=== PATIENT | female | born 1940 | race Caucasian/White ===

== ENCOUNTER 2018-02-01 00:53 | Observation (INO) | payer MEDICARE, OTHER ==
[2018-02-01] MEDS ORDERED: ONDANSETRON 4 MG/2 ML VIAL IVP STA (01:45)
[2018-02-01 01:54] LABS: Anisocytosis Marked; HCT 35.7 % (34.0-46.0); HGB 10.9 gm/dL (11.4-16.0); Hypochromasia Marked; MCH 35.3 pg (25.0-35.0); MCHC 30.4 g/dL (31.0-37.0); Macrocytosis Marked; Mean Platelet Volume 8.8; Platelet Count 272 k/uL (150-450); RBC 3.08 m/uL (3.80-5.40)
--- NOTE | 2018-02-01 01:54 | ED ---
Nausea/Vomiting/Diarrhea HPI - General Chief complaint: Nausea/Vomiting/Diarrhea Stated complaint: abd pain,NV Time Seen by Provider: 02/01/18 01:23 Source: patient, family, EMS Mode of arrival: EMS Limitations: no limitations - History of Present Illness Initial comments: This patient is 78-year-old woman transferred here from [facility] facility to be evaluated for nausea and vomiting. The patient was checked by the staff at the alf and then appeared to be somewhat sweaty and shaky, and the alf staff was concerned that she may have had a possible seizure. No report of any trauma. Patient not able to describe this event. MD complaint: nausea, vomiting, other -: hour(s) Description of Vomiting: food contents Associated Abdominal Pain: No Consistency: now resolved Improves with: none Worsens with: none - Related Data Home Medications Medication Instructions Recorded Confirmed Levothyroxine Sodium [Synthroid] 88 mcg PO DAILY@0600 01/27/14 02/01/18 Multivitamins, Thera [Multivitamin 1 tab PO DAILY@0900 01/27/14 02/01/18 (formulary)] Omeprazole [PriLOSEC] 20 mg PO DAILY@0600 01/27/14 02/01/18 carBAMazepine [TEGretol] 400 mg PO Q8H 01/27/14 02/01/18 guaiFENesin SYRUP 100MG/5ML 200 mg PO Q4H PRN 01/27/14 02/01/18 [Robitussin] Calcium Carb-Vit D 500Mg-200Un 1 tab PO BID 05/17/14 02/01/18 [Oscal 500+D] Divalproex [Depakote] 500 mg PO TID 08/20/15 02/01/18 Leucovorin Calcium 15 mg PO BID 08/20/15 02/01/18 Hydrocortisone Cream 1 applic TOPICAL BID PRN 08/27/15 02/01/18 [Hydrocortisone 1% Cream] Ipratropium-Albuterol Nebulize 3 ml INHALATION RT-Q4H PRN 08/27/15 02/01/18 [Duoneb 0.5 mg-3 mg/3 ml Soln] Cholecalciferol (Vitamin D3) 2,000 unit PO DAILY@0900 02/01/18 02/01/18 [Vitamin D3] Donepezil [Aricept] 5 mg PO HS 02/01/18 02/01/18 Lactulose [Constulose] 20 gm PO BID PRN 02/01/18 02/01/18 Melatonin 2mg 2 mg PO HS 02/01/18 02/01/18 Perampanel [Fycompa] 6 mg PO HS@2100 02/01/18 02/01/18 Previous Rx's Medication Instructions Recorded Isosorbide Mononitrate ER [Imdur] 30 mg PO DAILY #1 tab 02/17/14 levETIRAcetam [Keppra] 1,000 mg PO BID #0 tab 08/21/15 HYDROcodone/APAP 5-325MG [Gray 1 tab PO Q8H PRN #3 tab 02/01/18 5-325] Metoprolol Tartrate [Lopressor] 50 mg PO BID #1 tab 02/01/18 Allergies Allergy/AdvReac Type Severity Reaction Status Date / Time neomycin Allergy Unknown Verified 02/01/18 08:01 Review of Systems ROS Statement: Those systems with pertinent positive or pertinent negative responses have been documented in the HPI. ROS Other: All systems not noted in ROS Statement are negative. Constitutional: Denies: fever, chills Respiratory: Denies: cough, dyspnea Cardiovascular: Denies: chest pain Gastrointestinal: Reports: nausea, vomiting. Denies: abdominal pain, diarrhea, hematemesis Musculoskeletal: Denies: back pain Neurological: Denies: headache, weakness, numbness Past Medical History Past Medical History: Chest Pain / Angina, COPD, Dementia, Fibromyalgia, GERD/ Reflux, Hypertension, Memory Impairment, Seizure Disorder, Skin Disorder, Thyroid Disorder Additional Past Medical History / Comment(s): anemia, lumbago, disease of blood and blood-forming organs, unspecified. Heart disease, upspecified. History of Any Multi-Drug Resistant Organisms: None Reported Past Surgical History: Orthopedic Surgery Additional Past Surgical History / Comment(s): RECENT BILATERAL CATARACT REMOVAL 1 MONTH AGO.bilateral knee replacements Past Anesthesia/Blood Transfusion Reactions: No Reported Reaction Additional Past Anesthesia/Blood Transfusion Reaction / Comment(s): NEVER RECIEVED BLOOD. Past Psychological History: Anxiety, Depression Smoking Status: Unknown if ever smoked Past Alcohol Use History: None Reported Past Drug Use History: None Reported - Past Family History Father Family Medical History: CVA/TIA Additional Family Medical History / Comment(s): FATHER OF CVA AT AGE 80. Mother Family Medical History: Coronary Artery Disease (CAD), Myocardial Infarction ([place] ) Additional Family Medical History / Comment(s): MOTHER AT AGE 88 UNSURE OF CAUSE. General Exam Limitations: no limitations General appearance: alert, in no apparent distress Head exam: Present: atraumatic, normocephalic Eye exam: Present: normal appearance, PERRL. Absent: scleral icterus, conjunctival injection Respiratory exam: Present: normal lung sounds bilaterally. Absent: respiratory distress, wheezes, rales, rhonchi Cardiovascular Exam: Present: regular rate, normal rhythm, normal heart sounds. Absent: systolic murmur, diastolic murmur, rubs, gallop GI/Abdominal exam: Present: soft. Absent: tenderness, guarding, rebound Back exam: Present: normal inspection Neurological exam: Present: alert, CN II-XII intact. Absent: motor sensory deficit Skin exam: Present: warm, dry, intact. Absent: rash Course Vital Signs 02/01/18 02/01/18 02/01/18 01:01 01:30 02:00 Temperature 96.8 F L Pulse Rate 73 68 Respiratory 20 16 Rate Blood Pressure 201/80 201/80 193/81 O2 Sat by Pulse 92 L 92 L 96 Oximetry 02/01/18 02/01/18 02/01/18 02:30 03:00 03:30 Temperature Pulse Rate Respiratory Rate Blood Pressure 193/81 177/74 171/62 O2 Sat by Pulse 98 Oximetry 02/01/18 02/01/18 02/01/18 04:00 04:30 06:00 Temperature Pulse Rate 60 78 75 Respiratory 14 16 Rate Blood Pressure 185/82 167/72 179/82 O2 Sat by Pulse 98 97 Oximetry Medical Decision Making - Medical Decision Making Patient 78-year-old woman sent from alf for episodes of nausea and vomiting, as well as concern of possible seizure. She did have additional vomiting here and will be admitted to control the symptoms. - Lab Data Result diagrams: 02/01/18 01:13 02/01/18 01:13 Lab Results 02/01/18 02/01/18 02/01/18 Range/Units 01:13 01:13 01:13 WBC 7.3 (3.8-10.6) k/uL RBC 3.08 L (3.80-5.40) m/uL Hgb 10.9 L (11.4-16.0) gm/dL Hct 35.7 (34.0-46.0) % MCV 116.0 H (80.0-100.0) fL MCH 35.3 H (25.0-35.0) pg MCHC 30.4 L (31.0-37.0) g/dL RDW 28.0 H (11.5-15.5) % Plt Count 272 (150-450) k/uL Neutrophils % (Manual) 36 % Lymphocytes % (Manual) 61 % Monocytes % (Manual) 3 % Neutrophils # (Manual) 2.63 (1.3-7.7) k/uL Lymphocytes # (Manual) 4.45 (1.0-4.8) k/uL Monocytes # (Manual) 0.22 (0-1.0) k/uL Nucleated RBCs 2 H (0-0) /100 WBC Manual Slide Review Performed Hypochromasia Marked Anisocytosis Marked Macrocytosis Marked Target Cells Present PT (9.0-12.0) sec INR (<1.2) APTT (22.0-30.0) sec Sodium 141 (137-145) mmol/L Potassium 3.4 L (3.5-5.1) mmol/L Chloride 107 (98-107) mmol/L Carbon Dioxide 26 (22-30) mmol/L Anion Gap 8 mmol/L BUN 24 H (7-17) mg/dL Creatinine 0.44 L (0.52-1.04) mg/dL Est GFR (CKD-EPI)AfAm >90 (>60 ml/min/1.73 sqM) Est GFR (CKD-EPI)NonAf >90 (>60 ml/min/1.73 sqM) Glucose 169 H (74-99) mg/dL Lactic Ac Sepsis Rflx Plasma Lactic Acid Cliff 2.8 H* (0.7-2.0) mmol/L Calcium 8.5 (8.4-10.2) mg/dL Total Bilirubin 0.5 (0.2-1.3) mg/dL AST 45 H (14-36) U/L ALT 43 (9-52) U/L Alkaline Phosphatase 136 H (38-126) U/L Troponin I (0.000-0.034) ng/mL Total Protein 6.4 (6.3-8.2) g/dL Albumin 3.3 L (3.5-5.0) g/dL Urine Color Urine Appearance (Clear) Urine pH (5.0-8.0) Ur Specific Orange (1.001-1.035) Urine Protein (Negative) Urine Glucose (UA) (Negative) Urine Ketones (Negative) Urine Blood (Negative) Urine Nitrite (Negative) Urine Bilirubin (Negative) Urine Urobilinogen (<2.0) mg/dL Ur Leukocyte Esterase (Negative) 02/01/18 02/01/18 02/01/18 Range/Units 01:13 01:13 02:21 WBC (3.8-10.6) k/uL RBC (3.80-5.40) m/uL Hgb (11.4-16.0) gm/dL Hct (34.0-46.0) % MCV (80.0-100.0) fL MCH (25.0-35.0) pg MCHC (31.0-37.0) g/dL RDW (11.5-15.5) % Plt Count (150-450) k/uL Neutrophils % (Manual) % Lymphocytes % (Manual) % Monocytes % (Manual) % Neutrophils # (Manual) (1.3-7.7) k/uL Lymphocytes # (Manual) (1.0-4.8) k/uL Monocytes # (Manual) (0-1.0) k/uL Nucleated RBCs (0-0) /100 WBC Manual Slide Review Hypochromasia Anisocytosis Macrocytosis Target Cells PT 11.5 (9.0-12.0) sec INR 1.2 H (<1.2) APTT 21.9 L (22.0-30.0) sec Sodium (137-145) mmol/L Potassium (3.5-5.1) mmol/L Chloride (98-107) mmol/L Carbon Dioxide (22-30) mmol/L Anion Gap mmol/L BUN (7-17) mg/dL Creatinine (0.52-1.04) mg/dL Est GFR (CKD-EPI)AfAm (>60 ml/min/1.73 sqM) Est GFR (CKD-EPI)NonAf (>60 ml/min/1.73 sqM) Glucose (74-99) mg/dL Lactic Ac Sepsis Rflx Y Plasma Lactic Acid Cliff (0.7-2.0) mmol/L Calcium (8.4-10.2) mg/dL Total Bilirubin (0.2-1.3) mg/dL AST (14-36) U/L ALT (9-52) U/L Alkaline Phosphatase (38-126) U/L Troponin I <0.012 (0.000-0.034) ng/mL Total Protein (6.3-8.2) g/dL Albumin (3.5-5.0) g/dL Urine Color Urine Appearance (Clear) Urine pH (5.0-8.0) Ur Specific Orange (1.001-1.035) Urine Protein (Negative) Urine Glucose (UA) (Negative) Urine Ketones (Negative) Urine Blood (Negative) Urine Nitrite (Negative) Urine Bilirubin (Negative) Urine Urobilinogen (<2.0) mg/dL Ur Leukocyte Esterase (Negative) 02/01/18 Range/Units 04:20 WBC (3.8-10.6) k/uL RBC (3.80-5.40) m/uL Hgb (11.4-16.0) gm/dL Hct (34.0-46.0) % MCV (80.0-100.0) fL MCH (25.0-35.0) pg MCHC (31.0-37.0) g/dL RDW (11.5-15.5) % Plt Count (150-450) k/uL Neutrophils % (Manual) % Lymphocytes % (Manual) % Monocytes % (Manual) % Neutrophils # (Manual) (1.3-7.7) k/uL Lymphocytes # (Manual) (1.0-4.8) k/uL Monocytes # (Manual) (0-1.0) k/uL Nucleated RBCs (0-0) /100 WBC Manual Slide Review Hypochromasia Anisocytosis Macrocytosis Target Cells PT (9.0-12.0) sec INR (<1.2) APTT (22.0-30.0) sec Sodium (137-145) mmol/L Potassium (3.5-5.1) mmol/L Chloride (98-107) mmol/L Carbon Dioxide (22-30) mmol/L Anion Gap mmol/L BUN (7-17) mg/dL Creatinine (0.52-1.04) mg/dL Est GFR (CKD-EPI)AfAm (>60 ml/min/1.73 sqM) Est GFR (CKD-EPI)NonAf (>60 ml/min/1.73 sqM) Glucose (74-99) mg/dL Lactic Ac Sepsis Rflx Plasma Lactic Acid Cliff (0.7-2.0) mmol/L Calcium (8.4-10.2) mg/dL Total Bilirubin (0.2-1.3) mg/dL AST (14-36) U/L ALT (9-52) U/L Alkaline Phosphatase (38-126) U/L Troponin I (0.000-0.034) ng/mL Total Protein (6.3-8.2) g/dL Albumin (3.5-5.0) g/dL Urine Color Yellow Urine Appearance Clear (Clear) Urine pH 5.5 (5.0-8.0) Ur Specific Orange 1.019 (1.001-1.035) Urine Protein Negative (Negative) Urine Glucose (UA) Negative (Negative) Urine Ketones Trace H (Negative) Urine Blood Negative (Negative) Urine Nitrite Negative (Negative) Urine Bilirubin Negative (Negative) Urine Urobilinogen <2.0 (<2.0) mg/dL Ur Leukocyte Esterase Negative (Negative) - EKG Data EKG shows normal: sinus rhythm, axis (Left axis deviation), intervals (MT interval 152 ms, normal. QTC 467 ms, normal. QRS duration slightly prolonged at 122 ms.), QRS complexes (Widened), ST-T waves (Normal) Rate: normal (Rate 67 bpm) Interpretation: LVH Disposition Clinical Impression: Nausea and vomiting in adult Disposition: ADMITTED IP TO THIS HOSP Condition: Fair
[2018-02-01 02:08] LABS: ALT 43 U/L (9-52); AST 45 U/L (14-36); Albumin 3.3 g/dL (3.5-5.0); Alkaline Phosphatase 136 U/L (38-126); Anion Gap 8 mmol/L; Blood Urea Nitrogen 24 mg/dL (7-17); Calcium 8.5 mg/dL (8.4-10.2); Carbon Dioxide 26 mmol/L (22-30); Chloride 107 mmol/L (98-107); Glucose 169 mg/dL (74-99); Potassium 3.4 mmol/L (3.5-5.1); Sodium 141 mmol/L (137-145); Total Bilirubin 0.5 mg/dL (0.2-1.3); Total Protein 6.4 g/dL (6.3-8.2)
[2018-02-01 02:09] LABS: INR 1.2 (<1.2); Partial Thromboplastin Time 21.9 sec (22.0-30.0); Prothrombin Time 11.5 sec (9.0-12.0)
--- NOTE | 2018-02-01 02:29 | XR ---
EXAMINATION TYPE: XR chest 1V portable DATE OF EXAM: 02/01/2018 COMPARISON: 08/20/2015 HISTORY: Nausea and vomiting TECHNIQUE: Single frontal view of the chest is obtained. FINDINGS: There is poor aspiration. There is some patchy atelectasis at the lung bases. There is no heart failure. Heart is probably enlarged. IMPRESSION: Atelectasis at the lung bases is the same or worse than last exam. No heart failure seen . Poor inspiration.
[2018-02-01 02:52] LABS: Lymphocytes # (M) 4.45 k/uL (1.0-4.8); Monocytes # (M) 0.22 k/uL (0-1.0); Neutrophils # (M) 2.63 k/uL (1.3-7.7); Neutrophils % (M) 36 %; Nucleated Red Blood Cells 2 /100 WBC (0-0); Target Cells Present; Total Cells Counted 200; WBC 7.3 k/uL (3.8-10.6)
[2018-02-01] MEDS ORDERED: SODIUM CHLORIDE 0.9% 2,500 ML IV ONE (02:59)
[2018-02-01 04:43] LABS: Appearance,Urine Clear (Clear); Bilirubin,Urine Negative (Negative); Blood,Urine Negative (Negative); Color,Urine Yellow; Glucose,Urine (UA) Negative (Negative); Ketones,Urine Trace (Negative); Leukocyte Esterase,Urine Negative (Negative); Nitrite,Urine Negative (Negative); PH, Urine 5.5 (5.0-8.0); Protein,Urine Negative (Negative); Specific Gravity,Urine 1.019 (1.001-1.035); Urobilinogen,Urine <2.0 mg/dL (<2.0)
[2018-02-01] MEDS ORDERED: NALOXONE 0.4 MG/ML 1 ML VIAL IV PRN (04:54)
[2018-02-01] MEDS ORDERED: ONDANSETRON 4 MG/2 ML VIAL IVP PRN (04:54)
[2018-02-01] MEDS ORDERED: Acetaminophen-Codeine 300-30mg TAB PO PRN (04:56)
[2018-02-01] MEDS ORDERED: IPRATROPIUM-ALBUTEROL 3 ML NEB INHALATION PRN (04:56)
[2018-02-01] MEDS ORDERED: HYDROCORTISONE 1% CREAM 30 GM TUBE TOPICAL PRN (04:56)
[2018-02-01] MEDS ORDERED: SODIUM CHLORIDE 0.9% 1,000 ML IV SCH (05:00)
[2018-02-01] MEDS ORDERED: PANTOPRAZOLE 40 MG TABLET PO SCH (07:30)
[2018-02-01] MEDS ORDERED: LEVOTHYROXINE 88 MCG TAB PO SCH (07:30)
[2018-02-01 07:49] VITALS: BP 176/90; PULSE 80; RESP 18; TEMP 97.1
[2018-02-01] MEDS ORDERED: METOPROLOL TARTRATE 25 MG TAB PO SCH (09:00)
[2018-02-01] MEDS ORDERED: FLUDROCORTISONE 0.1 MG TAB PO SCH (09:00)
[2018-02-01] MEDS ORDERED: carBAMazepine 200 MG TAB PO SCH (09:00)
[2018-02-01] MEDS ORDERED: ISOSORBIDE MONONITRATE ER 30 MG TAB.ER.24H PO SCH (09:00)
[2018-02-01] MEDS ORDERED: DIVALPROEX 500 MG TABLET.DR PO SCH (09:00)
[2018-02-01] MEDS ORDERED: levETIRAcetam 500 MG TAB PO SCH (09:00)
[2018-02-01] MEDS ORDERED: LACTULOSE 20 GM/30 ML CUP PO SCH (09:00)
[2018-02-01] MEDS ORDERED: HYDROcodone/APAP 5-325MG 1 EACH TAB PO PRN (11:35)
[2018-02-01] MEDS ORDERED: LEUCOVORIN 5 MG TAB PO SCH (12:00)
[2018-02-01] MEDS ORDERED: METOPROLOL TARTRATE 25 MG TAB PO ONE (15:15)
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
--- NOTE | 2018-02-01 16:00 | DS ---
DISCHARGE SUMMARY ADDENDUM TO DISCHARGE SUMMARY: DATE OF ADMISSION: 02/01/2018 DATE OF DISCHARGE: 02/01/2018. DISCHARGE MEDICATIONS: 1. Synthroid 88 mcg a day. 2. Multivitamin 1 tablet p.o. daily. 3. Prilosec 20 mg p.o. daily. 4. Tegretol 400 mg p.o. q.8 hours. 5. Robitussin 200 mg q.4 hours p.r.n. 6. Imdur ER 30 mg a day. 7. Os-Juan Jose 500 with D one tablet p.o. b.i.d. 8. Depakote 500 mg p.o. t.i.d.. 9. Leucovorin 15 mg p.o. b.i.d. 10.Keppra 1000 mg p.o. b.i.d. 11.Hydrocortisone 1% cream topically b.i.d. p.r.n. 12.DuoNeb q.4 p.r.n. 13.Vitamin D3 2000 units p.o. daily. 14.Aricept 5 mg at bedtime. 15.[place] 5 one tablet q.8 p.r.n. 16.Lactulose 20 grams p.o. b.i.d. p.r.n. 17.Melatonin 2 mg p.o. at bedtime. 18.Lopressor 50 mg p.o. b.i.d.; new dose. 19.Fycompa 6 mg p.o. at bedtime. DISCONTINUED: Claritin and Florinef. DISPOSITION: [facility]. Follow up with Dr. Ramos at [facility]. MMRAJESH / [place]: [id number] /
[2018-02-01] MEDS ORDERED: DONEPEZIL 5 MG TAB PO SCH (21:00)
[2018-02-01] MEDS ORDERED: MELATONIN 1 MG TAB PO SCH (21:00)
[2018-02-01] MEDS ORDERED: CALCIUM CARB-VIT D 500MG-200UN 1 EACH TAB PO SCH (21:00)
[2018-02-01] MEDS ORDERED: PERAMPANEL 6 MG PO SCH (21:00)
[2018-02-01] MEDS ORDERED: METOPROLOL TARTRATE 50 MG TAB PO SCH (21:00)
[2018-02-02] MEDS ORDERED: MULTIVITAMINS, THERA 1 EACH TAB PO SCH (09:00)
== END 2018-02-01 17:30 ==
LOC: EC 00:53 → EEVIPCON 00:53 → 1SOBS 04:54
PROVIDERS: ADMIT Hospitalist; ATTEND Hospitalist
DX: E86.0 Dehydration (principal); R11.2 Nausea with vomiting, unspecified; R10.9 Unspecified abdominal pain; R19.7 Diarrhea, unspecified; I10 Essential (primary) hypertension; Z68.30 Body mass index [BMI] 30.0-30.9, adult; E66.9 Obesity, unspecified; I25.10 Atherosclerotic heart disease of native coronary artery without angina pectoris; J44.9 Chronic obstructive pulmonary disease, unspecified; F02.80 Dementia in other diseases classified elsewhere, unspecified severity, without behavioral disturbance, psychotic disturbance, mood disturbance, and anxiety; G30.1 Alzheimer's disease with late onset; M79.7 Fibromyalgia; K21.9 Gastro-esophageal reflux disease without esophagitis; M19.91 Primary osteoarthritis, unspecified site; G40.909 Epilepsy, unspecified, not intractable, without status epilepticus; E03.9 Hypothyroidism, unspecified; M79.602 Pain in left arm; M54.5 Low back pain; Z99.3 Dependence on wheelchair; R53.81 Other malaise; D64.9 Anemia, unspecified; I73.9 Peripheral vascular disease, unspecified; R32 Unspecified urinary incontinence; F51.04 Psychophysiologic insomnia; Z86.73 Personal history of transient ischemic attack (TIA), and cerebral infarction without residual deficits; F41.9 Anxiety disorder, unspecified; F32.9 Major depressive disorder, single episode, unspecified; Z79.899 Other long term (current) drug therapy; Z79.890 Hormone replacement therapy; Z88.1 Allergy status to other antibiotic agents; Z87.828 Personal history of other (healed) physical injury and trauma
CPT/HCPCS: 99285; 96365 ×2; 96375 ×2; 96361 ×3; 36415; 93005; 80053; 83605; 84484; 85025; 85610; 85730; 81003; 87040; 87086; 87077; 87186; 71045; G0378; J2405; J0696

== ENCOUNTER 2018-04-05 09:30 | Emergency (ER) | payer MEDICARE, OTHER ==
[2018-04-05 09:40] VITALS: PULSE 61
--- NOTE | 2018-04-05 10:01 | ED ---
General Adult HPI - General Chief complaint: Recheck/Abnormal Lab/Rx Stated complaint: recheck Time Seen by Provider: 04/05/18 09:45 Source: patient, RN notes reviewed, old records reviewed Mode of arrival: EMS Limitations: no limitations - History of Present Illness Initial comments: This is a 70-year-old male female the ER for evaluation. Patient presents today for evaluation regarding to recheck. Patient herself denies any current complaints. Patient states she has no problems has no complaints does not want to be here in the emergency room at this time. -: unknown (Unknown complaint of dry heaving) Quality: other (None) Consistency: now resolved Improves with: none Worsens with: none Associated Symptoms: denies other symptoms Treatments Prior to Arrival: none - Related Data Home Medications Medication Instructions Recorded Confirmed Levothyroxine Sodium [Synthroid] 88 mcg PO DAILY@0600 01/27/14 04/05/18 Multivitamins, Thera [Multivitamin 1 tab PO DAILY@0900 01/27/14 04/05/18 (formulary)] Omeprazole [PriLOSEC] 20 mg PO DAILY@0600 01/27/14 04/05/18 carBAMazepine [TEGretol] 400 mg PO Q8H 01/27/14 04/05/18 guaiFENesin SYRUP 100MG/5ML 200 mg PO Q4H PRN 01/27/14 04/05/18 [Robitussin] Calcium Carb-Vit D 500Mg-200Un 1 tab PO BID 05/17/14 04/05/18 [Oscal 500+D] Divalproex [Depakote] 500 mg PO TID 08/20/15 04/05/18 Ipratropium-Albuterol Nebulize 3 ml INHALATION RT-Q4H PRN 08/27/15 04/05/18 [Duoneb 0.5 mg-3 mg/3 ml Soln] Cholecalciferol (Vitamin D3) 2,000 unit PO DAILY@0900 02/01/18 04/05/18 [Vitamin D3] Donepezil [Aricept] 5 mg PO HS 02/01/18 04/05/18 Lactulose [Constulose] 20 gm PO BID PRN 02/01/18 04/05/18 Melatonin 2mg 2 mg PO HS 02/01/18 04/05/18 Perampanel [Fycompa] 6 mg PO HS@2100 02/01/18 04/05/18 Clotrimazole/Betamethasone Dip 1 applic TOPICAL Q12H 04/05/18 04/05/18 [Lotrisone Cream] Leucovorin Calcium 5 mg PO BID 04/05/18 04/05/18 Leucovorin Calcium 10 mg PO BID 04/05/18 04/05/18 Sertraline HCl [Zoloft] 25 mg PO DAILY 04/05/18 04/05/18 Previous Rx's Medication Instructions Recorded Isosorbide Mononitrate ER [Imdur] 30 mg PO DAILY #1 tab 02/17/14 levETIRAcetam [Keppra] 1,000 mg PO BID #0 tab 08/21/15 HYDROcodone/APAP 5-325MG [[place] 1 tab PO Q8H PRN #3 tab 02/01/18 5-325] Metoprolol Tartrate [Lopressor] 50 mg PO BID #1 tab 02/01/18 Allergies Allergy/AdvReac Type Severity Reaction Status Date / Time neomycin Allergy Unknown Verified 04/05/18 10:00 Review of Systems ROS Statement: Those systems with pertinent positive or pertinent negative responses have been documented in the HPI. ROS Other: All systems not noted in ROS Statement are negative. Past Medical History Past Medical History: Chest Pain / Angina, COPD, Dementia, Fibromyalgia, GERD/ Reflux, Hypertension, Memory Impairment, Seizure Disorder, Skin Disorder, Thyroid Disorder Additional Past Medical History / Comment(s): anemia, lumbago, disease of blood and blood-forming organs, unspecified. Heart disease, upspecified. History of Any Multi-Drug Resistant Organisms: None Reported Past Surgical History: Orthopedic Surgery Additional Past Surgical History / Comment(s): RECENT BILATERAL CATARACT REMOVAL 1 MONTH AGO.bilateral knee replacements Past Anesthesia/Blood Transfusion Reactions: No Reported Reaction Additional Past Anesthesia/Blood Transfusion Reaction / Comment(s): NEVER RECIEVED BLOOD. Past Psychological History: Anxiety, Depression Smoking Status: Unknown if ever smoked Past Alcohol Use History: None Reported Past Drug Use History: None Reported - Past Family History Father Family Medical History: CVA/TIA Additional Family Medical History / Comment(s): FATHER OF CVA AT AGE 80. Mother Family Medical History: Coronary Artery Disease (CAD), Myocardial Infarction ([place] ) Additional Family Medical History / Comment(s): MOTHER AT AGE 88 UNSURE OF CAUSE. General Exam Limitations: no limitations General appearance: alert, in no apparent distress Head exam: Present: atraumatic, normocephalic, normal inspection Eye exam: Present: normal appearance, PERRL, EOMI. Absent: scleral icterus, conjunctival injection, periorbital swelling ENT exam: Present: normal exam, mucous membranes moist Neck exam: Present: normal inspection. Absent: tenderness, meningismus, lymphadenopathy Respiratory exam: Present: normal lung sounds bilaterally. Absent: respiratory distress, wheezes, rales, rhonchi, stridor Cardiovascular Exam: Present: regular rate, normal rhythm, normal heart sounds. Absent: systolic murmur, diastolic murmur, rubs, gallop, clicks GI/Abdominal exam: Present: soft, normal bowel sounds. Absent: distended, tenderness, guarding, rebound, rigid Extremities exam: Present: normal inspection, full ROM, normal capillary refill. Absent: tenderness, pedal edema, joint swelling, calf tenderness Back exam: Present: normal inspection Neurological exam: Present: alert, oriented X3, CN II-XII intact Psychiatric exam: Present: normal affect, normal mood Skin exam: Present: warm, dry, intact, normal color. Absent: rash Course Vital Signs 04/05/18 09:32 Temperature 97.5 F L Pulse Rate 61 Respiratory 18 Rate Blood Pressure 151/62 O2 Sat by Pulse 99 Oximetry - Reevaluation(s) Reevaluation #1: 04/05/18 10:15 Medical record and transfer paperwork are reviewed Reevaluation #2: 04/05/18 10:53 Spoke with [facility], they state patient does have these episodes of dry heaving, they did send her to ER for evaluation states that she had similar episodes about a year ago which did eventually get better, resolved. Medical Decision Making - Medical Decision Making 78 female the ER for evaluation presents today for evaluation regards to dry heaving, recurrent evaluation for dry heaving, patient is without any symptoms currently. Patient will be discharged back to [facility] Disposition Clinical Impression: Well adult exam Disposition: HOME SELF-CARE Condition: Good Instructions: Normal Exam (ED) Is patient prescribed a controlled substance at d/c from ED?: No Referrals: Maulik Ramos MD [Primary Care Provider] - 1-2 days
[2018-04-05 11:27] VITALS: BP 158/64; RESP 16; TEMP 97.8
== END 2018-04-05 12:25 | disposition home or self-care (01) ==
LOC: EC 09:30
DX: Z00.00 Encounter for general adult medical examination without abnormal findings (principal); R11.10 Vomiting, unspecified; J44.9 Chronic obstructive pulmonary disease, unspecified; F03.90 Unspecified dementia, unspecified severity, without behavioral disturbance, psychotic disturbance, mood disturbance, and anxiety; M79.7 Fibromyalgia; K21.9 Gastro-esophageal reflux disease without esophagitis; I10 Essential (primary) hypertension; G40.909 Epilepsy, unspecified, not intractable, without status epilepticus; E07.9 Disorder of thyroid, unspecified; D64.9 Anemia, unspecified; F32.9 Major depressive disorder, single episode, unspecified; F41.9 Anxiety disorder, unspecified; Z79.899 Other long term (current) drug therapy; Z88.1 Allergy status to other antibiotic agents; Z96.653 Presence of artificial knee joint, bilateral
CPT/HCPCS: 99284

== ENCOUNTER 2018-09-24 20:12 | Emergency (ER) | payer MEDICARE, OTHER ==
[2018-09-24 20:33] VITALS: RESP 18; TEMP 98
[2018-09-24] MEDS ORDERED: DIPH,PERTUS(ACELL)TETVAC-LF 0.5 ML VIAL IM ONE (21:37)
[2018-09-24] MEDS ORDERED: IBUPROFEN 600 MG TAB PO STA (21:37)
--- NOTE | 2018-09-24 21:40 | ED ---
General Adult HPI <AshleeBoogie P - Last Filed: 09/25/18 00:12> - General Source: EMS Mode of arrival: EMS Limitations: altered mental status - History of Present Illness -: hour(s) Location: left, lower extremity Radiation: non-radiation Severity scale (1-10): 0 Improves with: none Worsens with: none Associated Symptoms: denies other symptoms Treatments Prior to Arrival: none <Anastacio Blunt - Last Filed: 09/26/18 12:29> - General Chief complaint: Wound/Laceration Stated complaint: weakness Time Seen by Provider: 09/24/18 20:58 - History of Present Illness Initial comments: This patient is 78-year-old woman who states "I stubbed my toe." She states she had been attempting walk and then struck to on the ground. She then noted that it was bleeding afterward. The patient was denying significant pain initially. She indicates the fourth and fifth toes of the left foot. Following the exam she did have a little bit of mild aching pain. She stated that it was worse with palpation. No relieving factors. Patient denies any other injuries. She was not sure when her last tetanus shot administered. (Anastacio Blunt) - Related Data Home Medications Medication Instructions Recorded Confirmed Levothyroxine Sodium [Synthroid] 88 mcg PO DAILY@0600 01/27/14 09/24/18 Multivitamins, Thera [Multivitamin 1 tab PO DAILY@0900 01/27/14 09/24/18 (formulary)] carBAMazepine [TEGretol] 400 mg PO Q8H 01/27/14 09/24/18 guaiFENesin SYRUP 100MG/5ML 200 mg PO Q4H PRN 01/27/14 09/24/18 [Robitussin] Calcium Carb-Vit D 500Mg-200Un 1 tab PO BID 05/17/14 09/24/18 [Oscal 500+D] Divalproex [Depakote] 500 mg PO TID 08/20/15 09/24/18 Ipratropium-Albuterol Nebulize 3 ml INHALATION RT-Q4H PRN 08/27/15 09/24/18 [Duoneb 0.5 mg-3 mg/3 ml Soln] Cholecalciferol (Vitamin D3) 2,000 unit PO DAILY@0900 02/01/18 09/24/18 [Vitamin D3] Donepezil [Aricept] 5 mg PO HS 02/01/18 09/24/18 Lactulose [Constulose] 20 gm PO BID PRN 02/01/18 09/24/18 Perampanel [Fycompa] 6 mg PO HS@2100 02/01/18 09/24/18 Leucovorin Calcium 5 mg PO BID 04/05/18 09/24/18 Leucovorin Calcium 10 mg PO BID 04/05/18 09/24/18 Acetaminophen [Tylenol] 650 mg PO Q4H PRN 09/24/18 09/24/18 Famotidine [Pepcid] 20 mg PO HS 09/24/18 09/24/18 Melatonin 2 mg PO HS 09/24/18 09/24/18 Sertraline [Zoloft] 50 mg PO DAILY 09/24/18 09/24/18 Previous Rx's Medication Instructions Recorded levETIRAcetam [Keppra] 1,000 mg PO BID #0 tab 08/21/15 Metoprolol Tartrate [Lopressor] 50 mg PO BID #1 tab 02/01/18 Cephalexin [Keflex] 500 mg PO Q6HR #28 cap 09/25/18 Allergies Allergy/AdvReac Type Severity Reaction Status Date / Time neomycin Allergy Unknown Verified 09/24/18 20:59 Review of Systems ROS Other: All systems not noted in ROS Statement are negative. <Boogie Rosado - Last Filed: 09/25/18 00:12> ROS Other: All systems not noted in ROS Statement are negative. Cardiovascular: Denies: chest pain Gastrointestinal: Denies: abdominal pain Musculoskeletal: Denies: back pain Neurological: Denies: headache, weakness, numbness <Anastacio Blunt - Last Filed: 09/26/18 12:29> ROS Statement: Those systems with pertinent positive or pertinent negative responses have been documented in the HPI. Past Medical History Past Medical History: Chest Pain / Angina, COPD, Dementia, Fibromyalgia, GERD/Reflux, Hypertension, Memory Impairment, Seizure Disorder, Skin Disorder, Thyroid Disorder Additional Past Medical History / Comment(s): anemia, lumbago, disease of blood and blood-forming organs, unspecified. Heart disease, upspecified. History of Any Multi-Drug Resistant Organisms: None Reported Past Surgical History: Orthopedic Surgery Additional Past Surgical History / Comment(s): RECENT BILATERAL CATARACT REMOVAL 1 MONTH AGO.bilateral knee replacements Past Anesthesia/Blood Transfusion Reactions: No Reported Reaction Additional Past Anesthesia/Blood Transfusion Reaction / Comment(s): NEVER RECIEVED BLOOD. Past Psychological History: Anxiety, Depression Smoking Status: Unknown if ever smoked Past Alcohol Use History: None Reported Past Drug Use History: None Reported - Past Family History Father Family Medical History: CVA/TIA Additional Family Medical History / Comment(s): FATHER OF CVA AT AGE 80. Mother Family Medical History: Coronary Artery Disease (CAD), Myocardial Infarction ([place]) Additional Family Medical History / Comment(s): MOTHER AT AGE 88 UNSURE OF CAUSE. <Anastacio Blunt - Last Filed: 09/26/18 12:29> General Exam Limitations: altered mental status General appearance: alert, in no apparent distress Head exam: Present: atraumatic, normocephalic Cardiovascular Exam: Present: other (Dorsalis pedis pulse is normal on the left foot and there is normal capillary refill.) Neurological exam: Absent: motor sensory deficit (Throughout the left foot, no sensory or motor deficit.) Skin exam: Present: warm, dry, normal color, other (Laceration to the interdigital space toes 4-5. 2 cm in length.) <Anastacio Blunt - Last Filed: 09/26/18 12:29> Course Vital Signs 09/24/18 09/25/18 20:25 02:00 Temperature 98 F Pulse Rate 65 88 Respiratory 18 18 Rate Blood Pressure 126/74 133/92 O2 Sat by Pulse 98 95 Oximetry Procedures - Laceration Laceration #1 Consent Obtained: verbal consent Indication: laceration Site: foot (involves plantar base of left 4th and 5th digits) Size (cm): 3 Description: linear Depth: simple, single layer Anesthetic Used: lidocaine 1% Anesthesia Technique: local infiltration Amount (mls): 5 Pre-repair: wound explored, irrigated extensively (with 2 L sterile water and saline pressure irrgiation) Type of Sutures: nylon Size of Sutures: 5-0 Number of Sutures: 7 Technique: simple, interrupted Patient Tolerated Procedure: well, no complications <Boogie Rosado - Last Filed: 09/25/18 00:12> Medical Decision Making <Anastacio Blunt - Last Filed: 09/26/18 12:29> - Medical Decision Making Patient 78-year-old woman with foot injury after she struck her foot against a wall. She does appear to have nondisplaced mid phalanx fracture to #4. Clinically the patient does not have first toe fracture as suspected by radiology report. The patient had through irrigation and wound closure. Patient will be given antibiotic and follow closely to ensure no infection developing. (Anastacio Blunt) Disposition <Boogie Rosado - Last Filed: 09/25/18 00:12> Is patient prescribed a controlled substance at d/c from ED?: No <Anastacio Blunt - Last Filed: 09/26/18 12:29> Clinical Impression: Laceration, Toe fracture, left Disposition: HOME SELF-CARE Condition: Fair Instructions (If sedation given, give patient instructions): Laceration (ED), Toe Fracture (ED) Prescriptions: Cephalexin [Keflex] 500 mg PO Q6HR #28 cap Referrals: Maulik Ramos MD [Primary Care Provider] - 1-2 days Oliver Iglesias MD [Medical Doctor] - 1-2 days
--- NOTE | 2018-09-24 21:54 | XR ---
EXAMINATION TYPE: XR foot complete LT DATE OF EXAM: 09/24/2018 COMPARISON: NONE HISTORY: Lacerations. Trauma. TECHNIQUE: 3 views FINDINGS: There is narrowing and spurring at the first MP joint. There is osteopenia. There is vascul ar calcification. Metatarsals appear intact. There is irregular cortex of the base of the proximal ph alanx of the big toe. This could be a nondisplaced fracture. IMPRESSION: Possible nondisplaced fracture of the proximal phalanx big toe left foot. 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
[2018-09-24] MEDS ORDERED: LIDOCAINE 1% INJ 10MG/ML (20 ML MDV) SQ ONE (22:19)
[2018-09-24] MEDS ORDERED: ceFAZolin IN SWFI 2 GM/20 ML SYRINGE IVP ONE (22:19)
[2018-09-25 06:37] VITALS: BP 133/92; PULSE 88
== END 2018-09-25 01:50 | disposition home or self-care (01) ==
LOC: EC 20:12
DX: S92.525B Nondisplaced fracture of middle phalanx of left lesser toe(s), initial encounter for open fracture (principal); S91.115A Laceration without foreign body of left lesser toe(s) without damage to nail, initial encounter; J44.9 Chronic obstructive pulmonary disease, unspecified; F03.90 Unspecified dementia, unspecified severity, without behavioral disturbance, psychotic disturbance, mood disturbance, and anxiety; G40.909 Epilepsy, unspecified, not intractable, without status epilepticus; K21.9 Gastro-esophageal reflux disease without esophagitis; F32.9 Major depressive disorder, single episode, unspecified; F41.9 Anxiety disorder, unspecified; E07.9 Disorder of thyroid, unspecified; I10 Essential (primary) hypertension; Z23 Encounter for immunization; Z79.890 Hormone replacement therapy; Z79.899 Other long term (current) drug therapy; Z88.1 Allergy status to other antibiotic agents; Z96.653 Presence of artificial knee joint, bilateral; W22.8XXA Striking against or struck by other objects, initial encounter
CPT/HCPCS: 73630; 90715; 99285; 12002; 90471; 96365; J0690

== ENCOUNTER 2019-05-01 08:38 | Emergency (ER) | payer MEDICARE, OTHER ==
[2019-05-01 09:17] LABS: ALT 32 U/L (4-34); AST 64 U/L (14-36); African American GFR (CKD) >90 (>60 ml/min/1.73 sqM); Albumin 3.2 g/dL (3.5-5.0); Alkaline Phosphatase 74 U/L (38-126); Anion Gap 8 mmol/L; Blood Urea Nitrogen 18 mg/dL (7-17); Calcium 8.3 mg/dL (8.4-10.2); Carbon Dioxide 27 mmol/L (22-30); Chloride 104 mmol/L (98-107); Glucose 127 mg/dL (74-99); Magnesium 1.7 mg/dL (1.6-2.3); Non-African American GFR(CKD) 86 (>60 ml/min/1.73 sqM); Potassium 3.7 mmol/L (3.5-5.1); Sodium 139 mmol/L (137-145); Total Bilirubin 0.7 mg/dL (0.2-1.3); Total Protein 7.2 g/dL (6.3-8.2)
[2019-05-01 09:19] LABS: INR 1.2 (<1.2); Partial Thromboplastin Time 22.8 sec (22.0-30.0); Prothrombin Time 12.3 sec (9.0-12.0)
[2019-05-01 09:29] LABS: Appearance,Urine Clear (Clear); Bacteria,Urine Rare /hpf; Bilirubin,Urine Negative (Negative); Blood,Urine Negative (Negative); Color,Urine Dark Yellow; Glucose,Urine (UA) Negative (Negative); Hyaline Casts,Urine 74 /lpf (0-2); Ketones,Urine Trace (Negative); Leukocyte Esterase,Urine Negative (Negative); Mucus,Urine Occasional /hpf; Nitrite,Urine Negative (Negative); PH, Urine 5.5 (5.0-8.0); Protein,Urine 1+ (Negative); RBC,Urine 1 /hpf (0-5); Specific Gravity,Urine 1.031 (1.001-1.035); Squamous Epithelial Cell,Urine 1 /hpf (0-4); Urobilinogen,Urine <2.0 mg/dL (<2.0); WBC,Urine 2 /hpf (0-5)
[2019-05-01 09:36] LABS: Anisocytosis Marked; Basophils % (A) 1 %; Eosinophils % (A) 1 %; HCT 34.1 % (34.0-46.0); HGB 10.5 gm/dL (11.4-16.0); Hypochromasia Moderate; Lymphocytes # (A) 1.1 k/uL (1.0-4.8); Lymphocytes % (A) 35 %; MCH 36.1 pg (25.0-35.0); MCHC 30.8 g/dL (31.0-37.0); MCV 117.1 fL (80.0-100.0); Macrocytosis Marked; Mean Platelet Volume 9.8; Monocytes # (A) 0.3 k/uL (0-1.0); Monocytes % (A) 10 %; Neutrophils # (A) 1.6 k/uL (1.3-7.7); Neutrophils % (A) 50 %; Platelet Count 207 k/uL (150-450); RBC 2.91 m/uL (3.80-5.40); WBC 3.2 k/uL (3.8-10.6)
[2019-05-01 09:38] LABS: RDW 26.5 % (11.5-15.5)
[2019-05-01] MEDS ORDERED: SODIUM CHLORIDE 0.9% 1,000 ML IV STA (09:42)
--- NOTE | 2019-05-01 09:45 | ED ---
General Adult HPI - General Chief complaint: Weakness Stated complaint: lethargy/nausea Time Seen by Provider: 05/01/19 08:42 Source: patient Mode of arrival: EMS Limitations: no limitations - History of Present Illness Initial comments: Dictation was produced using Verdi[employer] dictation software. please excuse any grammatical, word or spelling errors. Chief Complaint: 79-year-old female sent in from [facility] for generalized weakness. History of Present Illness: 9-year-old female she has multiple comorbidities presents today with generalized weakness. Patient states she was feeling tired over the last 24 hours. She states she was diagnosed with fluid couple weeks ago. She states that flulike symptoms are gone. Patient states she feels weak especially worse when she tries to get up. Denies any vertiginous symptoms. She does feel nauseated but no vomiting. Denies any constitutional symptoms. Patient is a poor historian at this time. She is adamant that she is dehydrated and wants fluids. The ROS documented in this emergency department record has been reviewed and confirmed by me. Those systems with pertinent positive or negative responses have been documented in the HPI. All other systems are other negative and/or noncontributory. PHYSICAL EXAM: General Impression: Alert and oriented x3, not in acute distress HEENT: Normocephalic atraumatic, extra-ocular movements intact, pupils equal and reactive to light bilaterally, dry mucous membranes Cardiovascular: Heart regular rate and rhythm, S1&S2 audible, no murmurs, rubs or gallops Chest: Lungs clear to auscultation bilaterally, no rhonchi, no wheeze, no rales Abdomen: Bowel sounds present, abdomen soft, non-tender, non-distended, no organomegaly Musculoskeletal: Pulses present and equal in all extremities, no peripheral edema Motor: no focal deficits noted Neurological: CN II-XII grossly intact, no focal motor or sensory deficits noted Skin: Intact with no visualized rashes Psych: Normal affect and mood ED course:79-year-old female presents with chief complaint of generalized weakness. As upon arrival are within acceptable limits. Patient appears comfortable at this time. Laboratory evaluation obtained. Leukopenia of 3.2. Patient has history of leukopenia. She does have hemoglobin 10.5 which appears to be her baseline. Macrocytic anemia which is part of her history. Coag panel unremarkable. Metabolic panel shows. Lactic acidosis of 2.4. Urinalysis is likely from starvation ketoacidosis. Urinalysis is unremarkable. Patient given intravenous fluids. She is tolerating by mouth at bedside. Patient's clinical presentation likely secondary to dehydration. Patient able tolerate things orally. Believe patient is stable for discharge. Repeat lactic after intravenous fluids 1.0. Patient will. Bedside. Patient's clinical presentation likely secondary to mild dehydration and nutritional deficiency. Patient strongly advised to eat a well-balanced diet and to hydrate herself appropriately. Family member at bedside and advised to plan. Family member will encourage better intake. EKG interpretation: Ventricular rate 56, sinus bradycardia, CT interval 146, QS 114, QTc 459. No CT prolongation, no QTC prolongation, no ST or T-wave changes noted. EKG compared to 02/01/2018 showing no changes. Overall, this EKG is unr emarkable - Related Data Home Medications Medication Instructions Recorded Confirmed Levothyroxine Sodium [Synthroid] 88 mcg PO DAILY@0600 01/27/14 05/01/19 Multivitamins, Thera [Multivitamin 1 tab PO DAILY@0900 01/27/14 05/01/19 (formulary)] carBAMazepine [TEGretol] 400 mg PO DAILY@0600,1400,2200 01/27/14 05/01/19 guaiFENesin SYRUP 100MG/5ML 100 mg PO Q4H PRN 01/27/14 05/01/19 [Robitussin] Calcium Carb-Vit D 500Mg-200Un 1 tab PO BID 05/17/14 05/01/19 [Oscal 500+D] Divalproex [Depakote] 500 mg PO TID 08/20/15 05/01/19 Cholecalciferol (Vitamin D3) 2,000 unit PO DAILY@0900 02/01/18 05/01/19 [Vitamin D3] Perampanel [Fycompa] 6 mg PO HS@2100 02/01/18 05/01/19 Leucovorin Calcium 5 mg PO BID 04/05/18 05/01/19 Leucovorin Calcium 10 mg PO BID 04/05/18 05/01/19 Acetaminophen [Tylenol] 650 mg PO Q4H PRN 09/24/18 05/01/19 Famotidine [Pepcid] 20 mg PO HS 09/24/18 05/01/19 Melatonin 2 mg PO HS 09/24/18 05/01/19 Sertraline [Zoloft] 50 mg PO DAILY@0900 09/24/18 05/01/19 Aspirin EC [Ecotrin Low Dose] 81 mg PO DAILY 05/01/19 05/01/19 Donepezil [Aricept] 10 mg PO HS 05/01/19 05/01/19 Ketoconazole 2% Shampoo [Nizoral] 1 applic TOPICAL TUSA 05/01/19 05/01/19 Loperamide [Imodium] 2 mg PO ONCE PRN 05/01/19 05/01/19 Mylanta Regular Strength 30 mg PO Q4H PRN 05/01/19 05/01/19 Previous Rx's Medication Instructions Recorded levETIRAcetam [Keppra] 1,000 mg PO BID #0 tab 08/21/15 Metoprolol Tartrate [Lopressor] 50 mg PO BID #1 tab 02/01/18 Allergies Allergy/AdvReac Type Severity Reaction Status Date / Time neomycin Allergy Unknown Verified 05/01/19 10:06 Review of Systems ROS Statement: Those systems with pertinent positive or pertinent negative responses have been documented in the HPI. ROS Other: All systems not noted in ROS Statement are negative. Past Medical History Past Medical History: Chest Pain / Angina, COPD, Dementia, Fibromyalgia, GERD/Reflux, Hypertension, Memory Impairment, Seizure Disorder, Skin Disorder, Thyroid Disorder Additional Past Medical History / Comment(s): anemia, lumbago, disease of blood and blood-forming organs, unspecified. Heart disease, upspecified. History of Any Multi-Drug Resistant Organisms: MRSA Date of last positivie culture/infection: 09/25/18 MDRO Source:: MRSA URINE Past Surgical History: Orthopedic Surgery Additional Past Surgical History / Comment(s): RECENT BILATERAL CATARACT REMOVAL 1 MONTH AGO.bilateral knee replacements Past Anesthesia/Blood Transfusion Reactions: No Reported Reaction Additional Past Anesthesia/Blood Transfusion Reaction / Comment(s): NEVER RECIEVED BLOOD. Past Psychological History: Anxiety, Depression Smoking Status: Never smoker Past Alcohol Use History: None Reported Past Drug Use History: None Reported - Past Family History Father Family Medical History: CVA/TIA Additional Family Medical History / Comment(s): FATHER OF CVA AT AGE 80. Mother Family Medical History: Coronary Artery Disease (CAD), Myocardial Infarction ([place]) Additional Family Medical History / Comment(s): MOTHER AT AGE 88 UNSURE OF CAUSE. General Exam Limitations: no limitations Course Vital Signs 05/01/19 05/01/19 05/01/19 08:41 09:00 09:30 Temperature 97.9 F Pulse Rate 56 L 61 65 Respiratory 18 16 15 Rate Blood Pressure 144/60 144/60 129/59 O2 Sat by Pulse 100 93 L 100 Oximetry 05/01/19 10:00 Temperature Pulse Rate 54 L Respiratory 17 Rate Blood Pressure 128/54 O2 Sat by Pulse 96 Oximetry Medical Decision Making - Lab Data Result diagrams: 05/01/19 08:49 05/01/19 08:49 Lab Results 05/01/19 05/01/19 05/01/19 Range/Units 08:49 08:49 08:49 WBC 3.2 L (3.8-10.6) k/uL RBC 2.91 L (3.80-5.40) m/uL Hgb 10.5 L (11.4-16.0) gm/dL Hct 34.1 (34.0-46.0) % MCV 117.1 H (80.0-100.0) fL MCH 36.1 H (25.0-35.0) pg MCHC 30.8 L (31.0-37.0) g/dL RDW 26.5 H (11.5-15.5) % Plt Count 207 (150-450) k/uL Neutrophils % 50 % Lymphocytes % 35 % Monocytes % 10 % Eosinophils % 1 % Basophils % 1 % Neutrophils # 1.6 (1.3-7.7) k/uL Lymphocytes # 1.1 (1.0-4.8) k/uL Monocytes # 0.3 (0-1.0) k/uL Eosinophils # 0.0 (0-0.7) k/uL Basophils # 0.0 (0-0.2) k/uL Manual Slide Review Performed Hypochromasia Moderate Basophilic Stippling Present Anisocytosis Marked Macrocytosis Marked A Target Cells Present Fragmented RBCs Present PT 12.3 H (9.0-12.0) sec INR 1.2 H (<1.2) APTT 22.8 (22.0-30.0) sec Sodium 139 (137-145) mmol/L Potassium 3.7 (3.5-5.1) mmol/L Chloride 104 (98-107) mmol/L Carbon Dioxide 27 (22-30) mmol/L Anion Gap 8 mmol/L BUN 18 H (7-17) mg/dL Creatinine 0.62 (0.52-1.04) mg/dL Est GFR (CKD-EPI)AfAm >90 (>60 ml/min/1.73 sqM) Est GFR (CKD-EPI)NonAf 86 (>60 ml/min/1.73 sqM) Glucose 127 H (74-99) mg/dL Plasma Lactic Acid Cliff (0.7-2.0) mmol/L Calcium 8.3 L (8.4-10.2) mg/dL Phosphorus (2.5-4.5) mg/dL Magnesium 1.7 (1.6-2.3) mg/dL Total Bilirubin 0.7 (0.2-1.3) mg/dL AST 64 H (14-36) U/L ALT 32 (4-34) U/L Alkaline Phosphatase 74 (38-126) U/L Total Protein 7.2 (6.3-8.2) g/dL Albumin 3.2 L (3.5-5.0) g/dL Urine Color Urine Appearance (Clear) Urine pH (5.0-8.0) Ur Specific [place] (1.001-1.035) Urine Protein (Negative) Urine Glucose (UA) (Negative) Urine Ketones (Negative) Urine Blood (Negative) Urine Nitrite (Negative) Urine Bilirubin (Negative) Urine Urobilinogen (<2.0) mg/dL Ur Leukocyte Esterase (Negative) Urine RBC (0-5) /hpf Urine WBC (0-5) /hpf Ur Squamous Epith Cells (0-4) /hpf Urine Bacteria (None) /hpf Hyaline Casts (0-2) /lpf Urine Mucus (None) /hpf 05/01/19 05/01/19 05/01/19 Range/Units 08:49 08:49 08:49 WBC (3.8-10.6) k/uL RBC (3.80-5.40) m/uL Hgb (11.4-16.0) gm/dL Hct (34.0-46.0) % MCV (80.0-100.0) fL MCH (25.0-35.0) pg MCHC (31.0-37.0) g/dL RDW (11.5-15.5) % Plt Count (150-450) k/uL Neutrophils % % Lymphocytes % % Monocytes % % Eosinophils % % Basophils % % Neutrophils # (1.3-7.7) k/uL Lymphocytes # (1.0-4.8) k/uL Monocytes # (0-1.0) k/uL Eosinophils # (0-0.7) k/uL Basophils # (0-0.2) k/uL Manual Slide Review Hypochromasia Basophilic Stippling Anisocytosis Macrocytosis Target Cells Fragmented RBCs PT (9.0-12.0) sec INR (<1.2) APTT (22.0-30.0) sec Sodium (137-145) mmol/L Potassium (3.5-5.1) mmol/L Chloride (98-107) mmol/L Carbon Dioxide (22-30) mmol/L Anion Gap mmol/L BUN (7-17) mg/dL Creatinine (0.52-1.04) mg/dL Est GFR (CKD-EPI)AfAm (>60 ml/min/1.73 sqM) Est GFR (CKD-EPI)NonAf (>60 ml/min/1.73 sqM) Glucose (74-99) mg/dL Plasma Lactic Acid Cliff 2.4 H* (0.7-2.0) mmol/L Calcium (8.4-10.2) mg/dL Phosphorus 3.6 (2.5-4.5) mg/dL Magnesium (1.6-2.3) mg/dL Total Bilirubin (0.2-1.3) mg/dL AST (14-36) U/L ALT (4-34) U/L Alkaline Phosphatase (38-126) U/L Total Protein (6.3-8.2) g/dL Albumin (3.5-5.0) g/dL Urine Color Dark Yellow Urine Appearance Clear (Clear) Urine pH 5.5 (5.0-8.0) Ur Specific [place] 1.031 (1.001-1.035) Urine Protein 1+ H (Negative) Urine Glucose (UA) Negative (Negative) Urine Ketones Trace H (Negative) Urine Blood Negative (Negative) Urine Nitrite Negative (Negative) Urine Bilirubin Negative (Negative) Urine Urobilinogen <2.0 (<2.0) mg/dL Ur Leukocyte Esterase Negative (Negative) Urine RBC 1 (0-5) /hpf Urine WBC 2 (0-5) /hpf Ur Squamous Epith Cells 1 (0-4) /hpf Urine Bacteria Rare H (None) /hpf Hyaline Casts 74 H (0-2) /lpf Urine Mucus Occasional H (None) /hpf 05/01/19 Range/Units 11:53 WBC (3.8-10.6) k/uL RBC (3.80-5.40) m/uL Hgb (11.4-16.0) gm/dL Hct (34.0-46.0) % MCV (80.0-100.0) fL MCH (25.0-35.0) pg MCHC (31.0-37.0) g/dL RDW (11.5-15.5) % Plt Count (150-450) k/uL Neutrophils % % Lymphocytes % % Monocytes % % Eosinophils % % Basophils % % Neutrophils # (1.3-7.7) k/uL Lymphocytes # (1.0-4.8) k/uL Monocytes # (0-1.0) k/uL Eosinophils # (0-0.7) k/uL Basophils # (0-0.2) k/uL Manual Slide Review Hypochromasia Basophilic Stippling Anisocytosis Macrocytosis Target Cells Fragmented RBCs PT (9.0-12.0) sec INR (<1.2) APTT (22.0-30.0) sec Sodium (137-145) mmol/L Potassium (3.5-5.1) mmol/L Chloride (98-107) mmol/L Carbon Dioxide (22-30) mmol/L Anion Gap mmol/L BUN (7-17) mg/dL Creatinine (0.52-1.04) mg/dL Est GFR (CKD-EPI)AfAm (>60 ml/min/1.73 sqM) Est GFR (CKD-EPI)NonAf (>60 ml/min/1.73 sqM) Glucose (74-99) mg/dL Plasma Lactic Acid Cliff 1.0 (0.7-2.0) mmol/L Calcium (8.4-10.2) mg/dL Phosphorus (2.5-4.5) mg/dL Magnesium (1.6-2.3) mg/dL Total Bilirubin (0.2-1.3) mg/dL AST (14-36) U/L ALT (4-34) U/L Alkaline Phosphatase (38-126) U/L Total Protein (6.3-8.2) g/dL Albumin (3.5-5.0) g/dL Urine Color Urine Appearance (Clear) Urine pH (5.0-8.0) Ur Specific [place] (1.001-1.035) Urine Protein (Negative) Urine Glucose (UA) (Negative) Urine Ketones (Negative) Urine Blood (Negative) Urine Nitrite (Negative) Urine Bilirubin (Negative) Urine Urobilinogen (<2.0) mg/dL Ur Leukocyte Esterase (Negative) Urine RBC (0-5) /hpf Urine WBC (0-5) /hpf Ur Squamous Epith Cells (0-4) /hpf Urine Bacteria (None) /hpf Hyaline Casts (0-2) /lpf Urine Mucus (None) /hpf Disposition Clinical Impression: Dehydration Disposition: HOME SELF-CARE Condition: Good Additional Instructions: ED well-balanced diet and hydrate herself appropriately. Follow-up with her primary care physician regarding lab abnormalities and for outpatient management of her symptoms. Is patient prescribed a controlled substance at d/c from ED?: No Referrals: Maulik Ramos MD [Primary Care Provider] - 1-2 days Time of Disposition: 12:27
[2019-05-01 09:53] LABS: Target Cells Present
[2019-05-01 09:55] LABS: Basophilic Stippling Present; RBC Fragments Present
[2019-05-01 13:05] VITALS: BP 131/50; PULSE 67; RESP 18; TEMP 98.2
== END 2019-05-01 13:24 | disposition home or self-care (01) ==
LOC: EC 08:38
DX: E86.0 Dehydration (principal); R00.1 Bradycardia, unspecified; D72.819 Decreased white blood cell count, unspecified; E87.2 Acidosis; R53.1 Weakness; R11.0 Nausea; I20.9 Angina pectoris, unspecified; F03.90 Unspecified dementia, unspecified severity, without behavioral disturbance, psychotic disturbance, mood disturbance, and anxiety; M79.7 Fibromyalgia; K21.9 Gastro-esophageal reflux disease without esophagitis; G40.909 Epilepsy, unspecified, not intractable, without status epilepticus; E07.9 Disorder of thyroid, unspecified; F32.9 Major depressive disorder, single episode, unspecified; F41.9 Anxiety disorder, unspecified; Z88.8 Allergy status to other drugs, medicaments and biological substances; Z79.82 Long term (current) use of aspirin; Z79.890 Hormone replacement therapy; Z79.899 Other long term (current) drug therapy; Z86.14 Personal history of Methicillin resistant Staphylococcus aureus infection
CPT/HCPCS: 36415; 80053; 81001; 83605; 83735; 84100; 85025; 85610; 85730; 93005; 96360; 99285